=== PATIENT | male | born 1995 | race African-American/Black ===

== ENCOUNTER 2019-05-26 20:53 | Emergency (ER) | payer SELFPAY ==
[~2019-05-26] VITALS: Ht 182.9 cm; Wt 86.8 kg
[2019-05-26 21:00] VITALS: BP 133/109; TEMP 98.3
[2019-05-26] MEDS ORDERED: CEPHALEXIN500 M1 PO (22:07)
[2019-05-26 22:20] VITALS: PULSE 94
== END 2019-05-26 22:21 | disposition home or self-care (01) ==
LOC: COL.ER 20:53
DX: S62.625A Displaced fracture of middle phalanx of left ring finger, initial encounter for closed fracture (principal); S62.635A Displaced fracture of distal phalanx of left ring finger, initial encounter for closed fracture; S61.215A Laceration without foreign body of left ring finger without damage to nail, initial encounter; F12.90 Cannabis use, unspecified, uncomplicated; W23.0XXA Caught, crushed, jammed, or pinched between moving objects, initial encounter; Y92.009 Unspecified place in unspecified non-institutional (private) residence as the place of occurrence of the external cause

== ENCOUNTER 2019-06-27 18:38 | Emergency (ER) | payer SELFPAY ==
[~2019-06-27 18:38] MED LIST: CEPHALEXIN500 M1 PO
[2019-06-27 19:01] VITALS: BP 148/87
[2019-06-27] MEDS ORDERED: OMNICEF 300MG300 MG PO (19:56)
[2019-06-27] MEDS ORDERED: DOXYCYCLINE HY100 MG PO ×2 (19:56→20:24)
[2019-06-27 20:50] VITALS: PULSE 90; TEMP 98.2
[2019-06-30] MEDS ORDERED: BACTRIM DS 8001 TAB PO (17:29)
== END 2019-06-27 20:51 | disposition home or self-care (01) ==
LOC: COL.ER 18:38
DX: S61.211D Laceration without foreign body of left index finger without damage to nail, subsequent encounter (principal); L08.9 Local infection of the skin and subcutaneous tissue, unspecified; X58.XXXA Exposure to other specified factors, initial encounter